=== PATIENT | male | born 1965 | race African-American/Black ===

== ENCOUNTER 2019-06-10 15:28 | Inpatient (IN) | payer MEDICARE, OTHER ==
[~2019-06-10] VITALS: Ht 182.9 cm; Wt 91.2 kg
[2019-06-10] MEDS ORDERED: LORAZEPAM 2MG/ML CPJ IV STA ×2 (15:53→15:55)
[2019-06-10] MEDS ORDERED: SODIUM CHLORIDE 0.9% 1,000 ML IV ONE ×3 (15:53→20:30)
[2019-06-10 16:10] LABS: BASOPHILS % 0.9 % (0.0-2.0); EOSINOPHILS % 1.9 % (0.0-5.0); HEMATOCRIT. 42.8 % (42.0-52.0); HEMOGLOBIN. 14.1 g/dL (14.0-18.0); MEAN CORPUSCULAR HEMOGLOBIN 27.7 pg (28.0-32.0); MEAN CORPUSCULAR VOLUME 84.1 fL (80.0-94.0); MEAN PLATELET VOLUME 7.6 fl (7.4-10.4); MONOCYTES % 9.6 % (2.0-8.0); NEUTROPHILS % 40.6 % (40.0-76.0); PLATELET 399 x1000/uL (130-400); RED BLOOD CELL COUNT 5.09 mill/uL (4.7-6.1); RED CELL DISTRIBUTION WIDTH 16.5 % (11.6-14.6)
[2019-06-10 16:13] LABS: CHLORIDE 108 mEq/L (98-107)
[2019-06-10 16:17] LABS: ETHANOL BLOOD 70 mg/dL
[2019-06-10 16:29] LABS: CLARITY URINE CLEAR (CLEAR); COLOR URINE YELLOW (YELLOW); KETONES URINE NEGATIVE (NEGATIVE); LEUKOCYTE ESTERASE URINE NEGATIVE (NEGATIVE); NITRITE URINE NEGATIVE (NEGATIVE); OCCULT BLOOD URINE NEGATIVE (NEGATIVE); PROTEIN URINE TRACE (NEGATIVE); SPECIFIC GRAVITY URINE 1.017 (1.005-1.030); UROBILINOGEN URINE 0.2 E.U./dL (0.2-1.0)
[2019-06-10 16:51] LABS: *AMPHETAMINES SCREEN URINE NEGATIVE (NEGATIVE); *BARBITURATES SCREEN URINE NEGATIVE (NEGATIVE); *BENZODIAZEPINES SCREEN URINE NEGATIVE (NEGATIVE); *COCAINE SCREEN URINE NEGATIVE (NEGATIVE); METHADONE URINE SCREEN NEGATIVE (NEGATIVE)
[2019-06-10 16:52] LABS: CANNABINOID URINE SCREEN NEGATIVE (NEGATIVE); OPIATES URINE SCREEN NEGATIVE (NEGATIVE); PHENCYCLIDINE URINE SCREEN NEGATIVE (NEGATIVE)
[2019-06-10] MEDS ORDERED: POTASSIUM CHLORIDE 20MEQ TABLET SR PO ONE (18:00)
[2019-06-10] MEDS ORDERED: MAGNESIUM/ALUMINUM HYDROXIDE/SIMETHICONE 30ML UDC PO PRN (20:15)
[2019-06-10] MEDS ORDERED: MORPHINE SULFATE 2 MG/ML CPJ (NOT FOR IM USE) IV PRN (20:15)
[2019-06-10] MEDS ORDERED: LORAZEPAM 2MG/ML CPJ IV PRN (20:15)
[2019-06-10] MEDS ORDERED: CLONIDINE 0.1MG TABLET PO PRN (20:15)
[2019-06-10] MEDS ORDERED: LEVOFLOXACIN 500MG PREMIX 100 ML IV ONE (20:15)
[2019-06-10] MEDS ORDERED: KCL 20MEQ/100ML PREMIX 100 ML IV ONE (20:15)
[2019-06-10] MEDS ORDERED: ACETAMINOPHEN 325MG TABLET PO PRN (20:15)
[2019-06-10] MEDS ORDERED: ONDANSETRON HCL 4MG/2ML INJ IV PRN (20:15)
[2019-06-10 23:00] VITALS: BP 163/98
[2019-06-10 23:14] LABS: CREATINE KINASE 172 IU/L (39-308)
[2019-06-10 23:30] VITALS: BP 163/98
[2019-06-11 00:30] VITALS: BP 150/93
[2019-06-11] MEDS: SODIUM CHLORIDE 0.45% 1,000 ML IV SCH ×2 (00:43→17:51)
[2019-06-11 04:00] VITALS: BP 148/98
[2019-06-11 07:34] LABS: BASOPHILS % 0.7 % (0.0-2.0); HEMATOCRIT. 40.4 % (42.0-52.0); HEMOGLOBIN. 13.3 g/dL (14.0-18.0); LYMPHOCYTES % 34.8 % (20.0-50.0); MEAN CORPUSCULAR VOLUME 84.8 fL (80.0-94.0); MEAN PLATELET VOLUME 7.5 fl (7.4-10.4); MONOCYTES % 10.1 % (2.0-8.0); NEUTROPHILS % 52.4 % (40.0-76.0); PLATELET 350 x1000/uL (130-400); RED BLOOD CELL COUNT 4.76 mill/uL (4.7-6.1); RED CELL DISTRIBUTION WIDTH 15.7 % (11.6-14.6)
[2019-06-11 07:45] LABS: CHLORIDE 109 mEq/L (98-107)
[2019-06-11 07:53] LABS: HDL CHOLESTEROL 55 mg/dL (40-59)
[2019-06-11 07:56] LABS: LDL CHOLESTEROL 56 mg/dL (5-100)
[2019-06-11 07:57] LABS: CREATINE KINASE 144 IU/L (39-308)
[2019-06-11 08:00] VITALS: BP 145/98
[2019-06-11] MEDS: AMLODIPINE 10MG TABLET PO SCH (11:20)
[2019-06-11] MEDS: METOPROLOL TARTRATE 25MG TABLET PO SCH ×2 (11:20→21:00)
[2019-06-11 12:00] VITALS: BP 136/100
[2019-06-11 16:00] VITALS: BP 126/90
[2019-06-11 20:00] VITALS: BP 133/91
[2019-06-12] VITALS: BP 126/89
[2019-06-12 04:00] VITALS: BP 134/92
[2019-06-12 08:00] VITALS: BP 126/88
[2019-06-12] MEDS: METOPROLOL TARTRATE 25MG TABLET PO SCH (08:56)
[2019-06-12] MEDS: AMLODIPINE 10MG TABLET PO SCH (08:57)
[2019-06-12 12:00] VITALS: BP 125/79
[2019-06-12 16:00] VITALS: BP 105/75
== END 2019-06-12 16:55 | disposition home or self-care (01) | DRG 93 ==
LOC: ER 15:28 → EDBEDREQ 20:05 → EDBEDREQTM 20:05 → ENRESERV 21:11 → 8WST 23:31
PROVIDERS: ADMIT Hospitalist; ATTEND Hospitalist
DX: G92 Toxic encephalopathy (principal); I25.10 Atherosclerotic heart disease of native coronary artery without angina pectoris; F10.129 Alcohol abuse with intoxication, unspecified; F32.9 Major depressive disorder, single episode, unspecified; E87.6 Hypokalemia; F15.90 Other stimulant use, unspecified, uncomplicated; I11.9 Hypertensive heart disease without heart failure; Z79.899 Other long term (current) drug therapy; Z88.0 Allergy status to penicillin
CPT/HCPCS: 36415; 71045; 80061; 80305; 80307; 80320; 80329; 81003; 82550; 83605; 83880; 84443; 84484; 93005; 93306; 93970; 99285; J1956; J2060; J3480; J7030; G0480